=== PATIENT | male | born 1965 | race Caucasian/White ===

== ENCOUNTER → 2021-12-09 | Outpatient (CLI) | payer MEDICAID ==
[2021-12-09 15:33] LABS: HEMATOCRIT 38 % (40-54); HEMOGLOBIN 12.4 g/dL (13.3-17.7); MEAN CORPUSCULAR HEMOGLOBIN 28 pg (25-34); MEAN CORPUSCULAR HGB CONC 33 g/dL (32-36); MEAN CORPUSCULAR VOLUME 85 fL (80-99); MEAN PLATELET VOLUME 11.2 fL (9.0-12.2); PLATELET COUNT 324 10^3/uL (130-400); WHITE BLOOD COUNT 9.8 10^3/uL (4.3-11.0)
[2021-12-09 15:53] LABS: BILIRUBIN,TOTAL 0.2 MG/DL (0.1-1.0); BUN/CREATININE RATIO 12; CALCIUM 9.4 MG/DL (8.5-10.1); CARBON DIOXIDE 23 MMOL/L (21-32); CHLORIDE 107 MMOL/L (98-107); CREATININE SERUM 0.65 MG/DL (0.60-1.30); GFR ESTIMATED 110; GLUCOSE 113 MG/DL (70-105); POTASSIUM 4.2 MMOL/L (3.6-5.0); SODIUM 143 MMOL/L (135-145)
[2021-12-09 15:54] LABS: ALANINE AMINOTRANSFERASE 12 U/L (0-55); ALBUMIN 4.8 GM/DL (3.2-4.5); ALKALINE PHOSPHATASE 125 U/L (40-136); TOTAL PROTEIN 7.6 GM/DL (6.4-8.2)
== END ==
PROVIDERS: ATTEND Pediatrics
DX: R60.9 Edema, unspecified (principal)
CPT/HCPCS: 36415; 80053; 85027

== ENCOUNTER → 2021-12-10 | Outpatient (CLI) | payer MEDICAID ==
[2021-12-10 12:07] LABS: BILIRUBIN,URINE NEGATIVE (NEGATIVE); CLARITY,URINE TURBID; COLOR,URINE YELLOW; GLUCOSE, URINE (UA) NEGATIVE (NEGATIVE); KETONES,URINE NEGATIVE (NEGATIVE); LEUKOCYTE ESTERASE ,URINE 2+ (NEGATIVE); NITRITE,URINE POSITIVE (NEGATIVE); PH,URINE 5.5 (5-9); PROTEIN,URINE NEGATIVE (NEGATIVE)
[2021-12-10 12:13] LABS: BACTERIA,URINE LARGE /HPF; RBC,URINE TNTC /HPF
== END ==
PROVIDERS: ATTEND Pediatrics
DX: R30.0 Dysuria (principal)
CPT/HCPCS: 81000; 87088

== ENCOUNTER → 2021-12-17 | Outpatient (CLI) | payer MEDICAID | PROVIDERS: ATTEND Pediatrics | DX: G82.50 Quadriplegia, unspecified (principal) | CPT/HCPCS: 36415; 84134 ==

== ENCOUNTER → 2021-12-18 | Outpatient (CLI) | payer MEDICAID | PROVIDERS: ATTEND Pediatrics | DX: G82.50 Quadriplegia, unspecified (principal); L89.109 Pressure ulcer of unspecified part of back, unspecified stage | CPT/HCPCS: 36415; 83036 ==

== ENCOUNTER 2022-01-26 08:56 | Emergency (ER) | payer OTHER, MEDICAID ==
[~2022-01-26] VITALS: Ht 170.1 cm; Wt 68.1 kg
--- NOTE | 2022-01-26 08:58 | ED Abdominal Pain ---
General Stated Complaint: ABD PAIN; FEVER History of Present Illness Date Seen by Provider: Jan 26, 2022 Time Seen by Provider: 08:58 Initial Comments 57-year-old male with PMH of quadriplegia/SZD/bipolar/schizophrenia/colostomy bag, is brought in by EMS from [facility] with complaints of fever for the past 2 days, and abdominal pain. Denies chest pain, shortness of breath, nausea and vomiting, headache, neck stiffness, neck pain, dysuria. Allergies and Home Medications Allergies Coded Allergies: No Known Drug Allergies (Unverified , 01/26/22) Patient Home Medication List Home Medication List Reviewed: Yes Review of Systems Review of Systems Constitutional: fever, malaise EENTM: No Symptoms Reported Respiratory: No Symptoms Reported Cardiovascular: No Symptoms Reported Gastrointestinal: Abdominal Pain Genitourinary: No Symptoms Reported Musculoskeletal: no symptoms reported Skin: no symptoms reported Psychiatric/Neurological: No Symptoms Reported Endocrine: No Symptoms Reported Hematologic/Lymphatic: No Symptoms Reported Physical Exam Vital Signs Vital Signs - First Documented 01/26/22 08:57 Temp 39.1 Pulse 107 Resp 20 B/P (MAP) 98/60 (73) Pulse Ox 95 O2 Delivery Room Air Capillary Refill : Height/Weight/BMI Height: '" Weight: lbs. oz. kg; BMI Method: General Appearance: no apparent distress HEENT: PERRL/EOMI Neck: non-tender, supple, normal inspection Respiratory: chest non-tender, lungs clear, normal breath sounds Cardiovascular: normal peripheral pulses, regular rate, rhythm Gastrointestinal: normal bowel sounds, soft, tenderness (Diffuse generalized abdominal tenderness), other (Colostomy present) Extremities: other (Quadriplegia) Back: no CVA tenderness Neurologic/Psychiatric: alert, oriented x 3, other (quadriplegia) Skin: normal color Focused Exam Lactate Level 01/26/22 09:28: Lactic Acid Level 1.37 Lactic Acid Level Laboratory Tests Test 01/26/22 09:28 Lactic Acid Level 1.37 MMOL/L (0.50-2.00) Progress/Results/Core Measures Results/Orders Lab Results Laboratory Tests Test 01/26/22 09:08 01/26/22 09:28 01/26/22 09:39 01/26/22 11:05 Range/Units White Blood Count 13.6 H 4.3-11.0 10^3/uL Red Blood Count 4.36 4.30-5.52 10^6/uL Hemoglobin 12.1 L 13.3-17.7 g/dL Hematocrit 38 L 40-54 % Mean Corpuscular Volume 87 80-99 fL Mean Corpuscular Hemoglobin 28 25-34 pg Mean Corpuscular Hemoglobin Concent 32 32-36 g/dL Red Cell Distribution Width 15.4 H 10.0-14.5 % Platelet Count 244 130-400 10^3/uL Mean Platelet Volume 10.0 9.0-12.2 fL Immature Granulocyte % (Auto) 1 % Neutrophils (%) (Auto) 84 H 42-75 % Lymphocytes (%) (Auto) 10 L 12-44 % Monocytes (%) (Auto) 5 0-12 % Eosinophils (%) (Auto) 0 0-10 % Basophils (%) (Auto) 0 0-10 % Neutrophils # (Auto) 11.4 H 1.8-7.8 10^3/uL Lymphocytes # (Auto) 1.4 1.0-4.0 10^3/uL Monocytes # (Auto) 0.7 0.0-1.0 10^3/uL Eosinophils # (Auto) 0.0 0.0-0.3 10^3/uL Basophils # (Auto) 0.0 0.0-0.1 10^3/uL Immature Granulocyte # (Auto) 0.1 0.0-0.1 10^3/uL D-Dimer 0.90 H 0.00-0.49 UG/ML Sodium Level 138 135-145 MMOL/L Potassium Level 3.9 3.6-5.0 MMOL/L Chloride Level 105 98-107 MMOL/L Carbon Dioxide Level 22 21-32 MMOL/L Anion Gap 11 5-14 MMOL/L Blood Urea Nitrogen 12 7-18 MG/DL Creatinine 0.85 0.60-1.30 MG/DL Estimat Glomerular Filtration Rate 101 BUN/Creatinine Ratio 14 Glucose Level 100 70-105 MG/DL Lactic Acid Level 1.37 0.50-2.00 MMOL/L Calcium Level 8.8 8.5-10.1 MG/DL Corrected Calcium 8.6 8.5-10.1 MG/DL Magnesium Level 1.7 1.6-2.4 MG/DL Total Bilirubin 0.4 0.1-1.0 MG/DL Aspartate Amino Transf (AST/SGOT) 14 5-34 U/L Alanine Aminotransferase (ALT/SGPT) 6 0-55 U/L Alkaline Phosphatase 123 40-136 U/L Total Protein 7.8 6.4-8.2 GM/DL Albumin 4.3 3.2-4.5 GM/DL Lipase 21 8-78 U/L Influenza Type A Antigen NEGATIVE NEGATIVE Influenza Type B Antigen NEGATIVE NEGATIVE SARS-CoV-2 RNA (RT-PCR) Not Detected Not Detecte Urine Color YELLOW Urine Clarity SLIGHTLY CLOUDY Urine pH 6.5 5-9 Urine Specific [place] 1.020 1.016-1.022 Urine Protein TRACE H NEGATIVE Urine Glucose (UA) NEGATIVE NEGATIVE Urine Ketones NEGATIVE NEGATIVE Urine Nitrite POSITIVE H NEGATIVE Urine Bilirubin NEGATIVE NEGATIVE Urine Urobilinogen 0.2 < = 1.0 MG/DL Urine Leukocyte Esterase 1+ H NEGATIVE Urine RBC (Auto) 1+ H NEGATIVE Urine RBC 5-10 H /HPF Urine WBC 50-100 H /HPF Urine Crystals NONE /LPF Urine Bacteria LARGE H /HPF Urine Casts NONE /LPF Urine Mucus NEGATIVE /LPF Urine Culture Indicated YES My Orders Orders - KYLE CHRISTIANSEN MD Cbc With Automated Diff (01/26/22 09:04) Comprehensive Metabolic Panel (01/26/22 09:04) Fibrin Degradation Products (01/26/22 09:04) Lactic Acid Analyzer (01/26/22 09:04) Lipase (01/26/22 09:04) Magnesium (01/26/22 09:04) Ua Culture If Indicated (01/26/22 09:04) Blood Culture (01/26/22 09:04) Influenza A & B Antigens (01/26/22 09:04) Covid 19 Inhouse Test (01/26/22 09:04) Chest 1 View Ap/Pa Only (01/26/22 09:07) Ed Iv/Invasive Line Start (01/26/22 09:07) Ns Iv 1000 Ml (Sodium Chloride 0.9%) (01/26/22 09:15) Iohexol Injection (Omnipaque 350 Mg/Ml 1 (01/26/22 10:30) Received Contrast (Hold Metformin- Contr (01/26/22 10:30) Sodium Chloride Flush (Catheter Flush Sy (01/26/22 10:30) Ns (Ivpb) (Sodium Chloride 0.9% Ivpb Bag (01/26/22 10:30) Ct Audrey Chest/Noang Abd-Pelv W (01/26/22 09:07) Urine Culture (01/26/22 11:05) Ceftriaxone 1 Gm Pre-Mix (Rocephin 1 Gm (01/26/22 11:25) Ceftriaxone (Rocephin) (01/26/22 11:30) Lidocaine 1% Inj 20 Ml (Xylocaine 1% Inj (01/26/22 11:30) Lidocaine 1% Inj 50 Ml (Xylocaine 1% Inj (01/26/22 11:34) Medications Given in ED Current Medications Medications Dose Ordered Sig/Carmen Route Start Time Stop Time Status Last Admin Dose Admin Ceftriaxone Sodium 2,000 mg ONCE ONCE IM 01/26/22 11:30 01/26/22 11:31 DC 01/26/22 11:37 2,000 MG Iohexol 100 ml ONCE ONCE IV 01/26/22 10:30 01/26/22 10:31 DC 01/26/22 10:53 100 ML Lidocaine HCl 4.2 ml ONCE ONCE INJ 01/26/22 11:30 01/26/22 11:31 DC 01/26/22 11:37 4.2 ML Sodium Chloride 10 ml NEEDED PRN IV 01/26/22 10:30 01/26/22 10:53 10 ML Sodium Chloride 100 ml ONCE ONCE IV 01/26/22 10:30 01/26/22 10:31 DC 01/26/22 10:53 100 ML Vital Signs/I&O 01/26/22 08:57 Temp 39.1 Pulse 107 Resp 20 B/P (MAP) 98/60 (73) Pulse Ox 95 O2 Delivery Room Air Progress Progress Note : Progress Note 1. ACUTE CYSTITIS WITH HEMATURIA WITH GENERALIZED WEAKNESS: -CT ABD/ PELVIS: see report - CXR: see report - Labs: WBC is 13.6 with a left shift, normal electrolytes and lactic acid - Blood culture -Lactic acid normal - Rapid flue test negative - COVID test ordered - UA positive for leukocyte esterase, nitrites, bacteria, WBC, and RBCs -Patient has indwelling Panda catheter, last changed date unknown - NS IVF bolus -Ceftriaxone 2 g IV 2. 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 Lozada, at [facility], and was recommended to transfer where there is a vascular surgeon available to take care of IVC filters. -Plan is to transfer to [facility] in [place] for vascular surgery consult and higher level of care. Diagnostic Imaging Diagonstic Imaging: Xray, CT Plain Films/CT/US/NM/MRI: chest, abdomen Comments [facility] [place], [place] NAME: INDIGO GUZMAN [facility] REC#: [id number] PT STATUS: REG ER : 1965 PHYSICIAN: KYLE CHRISTIANSEN MD ADMIT DATE: 01/26/22/ER FS Draft Date of Exam:01/26/22 CHEST 1 VIEW AP/PA ONLY EXAMINATION: Chest 1 view HISTORY: Abdominal pain and fever COMPARISON: 06/13/2021 FINDINGS: A 1.9 cm nodular opacity projects over the right 8th rib. No edema or pneumonia. No pleural effusion or pneumothorax. Heart size is normal. IMPRESSION: 1. Nodular opacity projecting over the right 8th rib. Chest CT without contrast recommended. Dictated on workstation # [id number] Dict: 01/26/22 0951 Trans: 01/26/22 0955 [facility] [id number] Interpreted by: RENATA DAUGHERTY MD Electronically signed by: Departure Communication (Admissions) Time/Spoke to Consulting Phy: 14:[address] Lozada, who recommended transfer to a facility where there is a vascular surgeon Impression Primary Impression: IVC thrombosis Additional Impressions: Elevated d-dimer Generalized weakness Acute cystitis with hematuria Disposition: S[facility]-TRM HOSP Condition: Stable Transfer Transfer Reason: Exceeds level of care Time Spoke to Accepting Phy: 14:19 Transfer Progress Notes Discussed with Dr Navarro, as well as vascular surgeon Transfer Facility: [facility] Method of Transfer: EMS Departure-Patient Inst. Referrals: RENATA THURMAN MD (PCP) Primary Care Physician KYLE CHRISTIANSEN MD Jan 26, 2022 08:58
[2022-01-26] MEDS ORDERED: NS IV 1000 ML 1,000 ML IV SCH ×2 (09:15→17:15)
[2022-01-26 09:43] LABS: BASOPHILS % (AUTO) 0 % (0-10); EOSINOPHILS % (AUTO) 0 % (0-10); HEMATOCRIT 38 % (40-54); HEMOGLOBIN 12.1 g/dL (13.3-17.7); LYMPHOCYTES # (AUTO) 1.4 10^3/uL (1.0-4.0); LYMPHOCYTES % (AUTO) 10 % (12-44); MEAN CORPUSCULAR HEMOGLOBIN 28 pg (25-34); MEAN CORPUSCULAR HGB CONC 32 g/dL (32-36); MEAN CORPUSCULAR VOLUME 87 fL (80-99); MONOCYTES # (AUTO) 0.7 10^3/uL (0.0-1.0); MONOCYTES % (AUTO) 5 % (0-12); NEUTROPHILS # (AUTO) 11.4 10^3/uL (1.8-7.8); NEUTROPHILS % (AUTO) 84 % (42-75); PLATELET COUNT 244 10^3/uL (130-400); WHITE BLOOD COUNT 13.6 10^3/uL (4.3-11.0)
--- NOTE | 2022-01-26 09:56 | Diagnostic Imaging Report ---
EXAMINATION: Chest 1 view HISTORY: Abdominal pain and fever COMPARISON: 06/13/2021 FINDINGS: A 1.9 cm nodular opacity projects over the right 8th rib. No edema or pneumonia. No pleural effusion or pneumothorax. Heart size is normal. IMPRESSION: 1. Nodular opacity projecting over the right 8th rib. Chest CT without contrast recommended. Dictated by: Dictated on workstation # [id number]
[2022-01-26 10:04] LABS: ALBUMIN 4.3 GM/DL (3.2-4.5); BILIRUBIN,TOTAL 0.4 MG/DL (0.1-1.0); CALCIUM 8.8 MG/DL (8.5-10.1); CREATININE SERUM 0.85 MG/DL (0.60-1.30); MAGNESIUM 1.7 MG/DL (1.6-2.4); POTASSIUM 3.9 MMOL/L (3.6-5.0); TOTAL PROTEIN 7.8 GM/DL (6.4-8.2)
[2022-01-26] MEDS ORDERED: HOLD METFORMIN - RECEIVED CONTRAST 20 ML VIAL IV SCH (10:30)
[2022-01-26] MEDS ORDERED: IOHEXOL 350 MG/ML 100 ML (OMNIPAQUE 350) VIAL IV ONE (10:30)
[2022-01-26] MEDS ORDERED: CATHETER FLUSH 10 ML SYR IV PRN (10:30)
[2022-01-26] MEDS ORDERED: NS 100 ML (IVPB) BAG IV ONE (10:30)
[2022-01-26 11:15] LABS: BILIRUBIN,URINE NEGATIVE (NEGATIVE); COLOR,URINE YELLOW; GLUCOSE, URINE (UA) NEGATIVE (NEGATIVE); KETONES,URINE NEGATIVE (NEGATIVE); LEUKOCYTE ESTERASE ,URINE 1+ (NEGATIVE); NITRITE,URINE POSITIVE (NEGATIVE); PH,URINE 6.5 (5-9); PROTEIN,URINE TRACE (NEGATIVE)
[2022-01-26 11:20] LABS: BACTERIA,URINE LARGE /HPF; CLARITY,URINE SLIGHTLY CLOUDY; WBC,URINE 50-100 /HPF
--- NOTE | 2022-01-26 11:22 | Diagnostic Imaging Report ---
EXAMINATION: CT angiography chest with and without, CT abdomen and pelvis with and without. TECHNIQUE: Noncontrast enhanced helical images were obtained through the chest, abdomen and pelvis. Contrast enhanced thin section helical images were obtained through the chest, abdomen and pelvis with intravenous contrast timed for the optimal opacification of the arterial structures per departmental CTA protocol. Post-processing, retro reconstructions and interpretation of angiographic images of the vessels was performed. 3D MIP reconstructions were performed and reviewed. All CT scans use one or more of the following dose optimizing techniques: automated exposure control, MA and/or KvP adjustment based on patient size and exam type or iterative reconstruction. HISTORY: Elevated D-dimer, abdominal pain COMPARISON: 05/13/2021 FINDINGS: There is respiratory motion in the lungs. No pulmonary embolism. There is no edema or pneumonia. No pleural effusion. No pneumothorax. No suspicious nodules. There is mild basilar atelectasis. There is no axillary or supraclavicular lymphadenopathy. There is no mediastinal lymphadenopathy. Heart size is normal. There are mild coronary artery calcifications. No pericardial effusion. Aorta is normal in caliber. The liver is normal without focal lesion. There is no biliary ductal dilation. Gallbladder is normal. Pancreas is normal. Spleen is normal. Adrenal glands are normal. There are a few tiny stones in the kidneys. No suspicious renal lesions. There is no hydronephrosis. Bladder is decompressed by Panda catheter but is thick-walled with surrounding stranding. There are either stones or excreted contrast in the bladder. Bowel is normal in caliber without obstruction or inflammation. There has been a colon resection with colostomy in the left lower quadrant. Inferior vena cava filter is present. There is a filling defect in the inferior vena cava measuring 1.8 x 1.2 cm immediately cranial to the filter. No free fluid or air. No abdominal or pelvic lymphadenopathy. Aorta is normal in caliber without aneurysm. There are no suspicious osseus lesions. There is a chronic appearing T12 compression fracture that is mild. IMPRESSION: 1. No pulmonary embolism. 2. Decompressed bladder with Panda catheter but with wall thickening and surrounding stranding in either stones or excreted contrast. Findings concerning for cystitis. 3. Inferior vena cava filter. There is a small filling defect above the filter concerning for a thrombus. IVC mass is considered less likely but followup MRI abdomen with and without contrast is recommended for confirmation Dictated by: Dictated on workstation # [id number]
[2022-01-26] MEDS ORDERED: cefTRIAXone 1 GM PRE-MIX 50 ML IV STA (11:25)
[2022-01-26] MEDS ORDERED: cefTRIAXone 2,000 MG VIAL IM ONE (11:30)
[2022-01-26] MEDS ORDERED: LIDOCAINE 1% INJ 20 ML VIAL INJ ONE (11:30)
[2022-01-26] MEDS ORDERED: LIDOCAINE 1% INJ 50 ML (XYLOCAINE) VIAL ONE (11:34)
[2022-01-26] MEDS ORDERED: ACETAMINOPHEN 325 MG TABLET PO ONE (17:30)
[2022-01-26] MEDS ORDERED: NS IV 1000 ML 1,000 ML IV STA (19:04)
[2022-01-26 19:17] VITALS: BP 102/63
== END 2022-01-26 19:17 | disposition short-term general hospital (02) ==
LOC: EDUNIT# 08:56 → ER FS 08:57
DX: I82.220 Acute embolism and thrombosis of inferior vena cava (principal); N30.01 Acute cystitis with hematuria; R53.1 Weakness; R79.1 Abnormal coagulation profile; Z20.822 Contact with and (suspected) exposure to COVID-19
CPT/HCPCS: 36415; 71045; 71275; 74177; 80053; 81000; 83605; 83690; 83735; 85025; 85379; 87040; 87077; 87088; 87186; 87636; 87804; Q9967

== ENCOUNTER 2022-03-02 13:24 | Emergency (ER) | payer OTHER, MEDICAID ==
[~2022-03-02] VITALS: Ht 175.3 cm; Wt 72.6 kg
[2022-03-02 13:36] LABS: BASOPHILS % (AUTO) 0 % (0-10); EOSINOPHILS # (AUTO) 0.2 10^3/uL (0.0-0.3); EOSINOPHILS % (AUTO) 3 % (0-10); HEMATOCRIT 33 % (40-54); HEMOGLOBIN 10.8 g/dL (13.3-17.7); LYMPHOCYTES # (AUTO) 2.2 10^3/uL (1.0-4.0); LYMPHOCYTES % (AUTO) 26 % (12-44); MEAN CORPUSCULAR HEMOGLOBIN 28 pg (25-34); MEAN CORPUSCULAR HGB CONC 32 g/dL (32-36); MEAN CORPUSCULAR VOLUME 86 fL (80-99); MEAN PLATELET VOLUME 9.2 fL (9.0-12.2); MONOCYTES # (AUTO) 0.5 10^3/uL (0.0-1.0); MONOCYTES % (AUTO) 5 % (0-12); NEUTROPHILS # (AUTO) 5.8 10^3/uL (1.8-7.8); NEUTROPHILS % (AUTO) 66 % (42-75); PLATELET COUNT 282 10^3/uL (130-400); WHITE BLOOD COUNT 8.7 10^3/uL (4.3-11.0)
[2022-03-02 13:56] LABS: ALANINE AMINOTRANSFERASE 11 U/L (0-55); ALKALINE PHOSPHATASE 124 U/L (40-136); BILIRUBIN,TOTAL < 0.2 MG/DL (0.1-1.0); BUN/CREATININE RATIO 17; CARBON DIOXIDE 23 MMOL/L (21-32); CHLORIDE 109 MMOL/L (98-107); CREATININE SERUM 0.65 MG/DL (0.60-1.30); GFR ESTIMATED 109; GLUCOSE 105 MG/DL (70-105); POTASSIUM 3.8 MMOL/L (3.6-5.0); SODIUM 142 MMOL/L (135-145); TOTAL PROTEIN 7.1 GM/DL (6.4-8.2)
[2022-03-02 14:00] LABS: BILIRUBIN,URINE NEGATIVE (NEGATIVE); COLOR,URINE YELLOW; GLUCOSE, URINE (UA) NEGATIVE (NEGATIVE); KETONES,URINE NEGATIVE (NEGATIVE); LEUKOCYTE ESTERASE ,URINE 3+ (NEGATIVE); NITRITE,URINE POSITIVE (NEGATIVE); PROTEIN,URINE TRACE (NEGATIVE)
[2022-03-02] MEDS ORDERED: DIATRIZOATE MEGLUM/SODIUM 37% 120 ML (GASTROGRAFIN) PO ONE (14:00)
[2022-03-02 14:02] LABS: BACTERIA,URINE LARGE /HPF; CLARITY,URINE SLIGHTLY CLOUDY; WBC,URINE 25-50 /HPF
--- NOTE | 2022-03-02 14:51 | Diagnostic Imaging Report ---
PROCEDURE: CT abdomen and pelvis without contrast. TECHNIQUE: Multiple contiguous axial images were obtained through the abdomen and pelvis without the use of intravenous contrast. Auto Exposure Controls were utilized during the CT exam to meet ALARA standards for radiation dose reduction. INDICATION: Generalized abdominal pain for three days. Nausea and vomiting. COMPARISON: 01/26/2022. FINDINGS: There is dependent atelectasis in the lung bases. The heart is normal in size. The liver demonstrates no focal lesion. The spleen appears normal. The pancreas is normal. The adrenal glands appear normal. The kidneys demonstrate multiple nonobstructing calculi, the largest on the right measuring up to 5 mm. There is no hydronephrosis. There is motion artifact resulting in suboptimal evaluation. There is contrast in the stomach with significant ingested material. Contrast extends into the small bowel. The small bowel is not distended. The appendix appears normal. There is moderate stool in the proximal colon. Left colostomy is noted. The remainder of the colon is unremarkable. The urinary bladder wall is thickened. A Panda catheter is in place. There are numerous stones in the bladder. There is surrounding edema. An IVC filter is noted. No acute osseous abnormality is seen. There is a chronic appearing compression deformity of T12. IMPRESSION: 1. Thickening of the urinary bladder wall with surrounding edema and numerous stones. A Panda catheter is present. Please correlate with urinalysis to exclude infection. 2. Bilateral nephrolithiasis. No obstructing calculi or hydronephrosis. 3. Moderate stool in the proximal colon up to the colostomy. No evidence of bowel obstruction. Dictated by: Dictated on workstation # [id number]
[2022-03-02] MEDS ORDERED: cefTRIAXone 1 GM PRE-MIX 50 ML IV SCH (15:15)
--- NOTE | 2022-03-02 15:15 | ED Abdominal Pain ---
General Chief Complaint: Abdominal/GI Problems Stated Complaint: ABD PAIN,NAUSEA Nursing Triage Note: Patient reports abdominal pain for 3 days, nausea today. Source of Information: Patient Exam Limitations: No Limitations History of Present Illness Date Seen by Provider: Mar 02, 2022 Time Seen by Provider: 13:30 Initial Comments Patient is a 49-year-old male with history of quadriplegia with colostomy who indwelling Panda catheter who presents with pain around colostomy site for the past 2 days with decreased output. Patient is still taking soft brown stool wit h minimal flatus. Abdominal pain is described as dull. He has not had nausea or vomiting. No fevers chills. Patient had colostomy placed at [facility] and April 2021. No other symptoms or complaints. Timing/Duration: 4-6 Hours Severity/Quality: Moderate Location: Other Radiation: Other Activities at Onset: Other Associated Symptoms: Other Allergies and Home Medications Allergies Coded Allergies: carrot (Verified Allergy, Unknown, 03/02/22) potato (Verified Allergy, Unknown, 03/02/22) Uncoded Allergies: green beans (Allergy, Unknown, 03/02/22) Patient Home Medication List Home Medication List Reviewed: Yes Review of Systems Review of Systems Constitutional: see HPI EENTM: See HPI Respiratory: See HPI Cardiovascular: See HPI Gastrointestinal: See HPI Genitourinary: See HPI Musculoskeletal: see HPI Skin: see HPI Psychiatric/Neurological: See HPI Endocrine: See HPI Hematologic/Lymphatic: See HPI All Other Systems Reviewed Negative Unless Noted: Yes Past Tschnkt-Dqbqow-Ccvtzr Hx Patient Social History Tobacco Use?: No Smoking Status: Former Smoker Substance use?: No Alcohol Use?: No Pt feels they are or have been: No Immunizations Up To Date First/Initial COVID19 Vaccinat: unknown Past Medical History Surgery/Hospitalization HX: bipolar, epilepsy, quadrilplegia Physical Exam Vital Signs Vital Signs - First Documented 03/02/22 13:32 Temp 36.7 Pulse 70 Resp 18 B/P (MAP) 113/71 (85) Pulse Ox 96 O2 Delivery Room Air Capillary Refill : Less Than 3 Seconds Height/Weight/BMI Height: '" Weight: lbs. oz. kg; 23.00 BMI Method: General Appearance: WD/WN, no apparent distress, other (Quadriplegic with contraction fractures of hips) HEENT: PERRL/EOMI, normal ENT inspection Respiratory: lungs clear Cardiovascular: regular rate, rhythm Gastrointestinal: soft, distended, other (Nondistended, no paraStoma hernia appreciated. I will see him in mucosa is pink with minimal swellinhg with minimal stool present in ostomy bag) Focused Exam Sepsis Stage: Ruled Out Progress/Results/Core Measures Results/Orders Lab Results Laboratory Tests Test 03/02/22 13:30 03/02/22 13:50 Range/Units White Blood Count 8.7 4.3-11.0 10^3/uL Red Blood Count 3.89 L 4.30-5.52 10^6/uL Hemoglobin 10.8 L 13.3-17.7 g/dL Hematocrit 33 L 40-54 % Mean Corpuscular Volume 86 80-99 fL Mean Corpuscular Hemoglobin 28 25-34 pg Mean Corpuscular Hemoglobin Concent 32 32-36 g/dL Red Cell Distribution Width 15.7 H 10.0-14.5 % Platelet Count 282 130-400 10^3/uL Mean Platelet Volume 9.2 9.0-12.2 fL Immature Granulocyte % (Auto) 0 % Neutrophils (%) (Auto) 66 42-75 % Lymphocytes (%) (Auto) 26 12-44 % Monocytes (%) (Auto) 5 0-12 % Eosinophils (%) (Auto) 3 0-10 % Basophils (%) (Auto) 0 0-10 % Neutrophils # (Auto) 5.8 1.8-7.8 10^3/uL Lymphocytes # (Auto) 2.2 1.0-4.0 10^3/uL Monocytes # (Auto) 0.5 0.0-1.0 10^3/uL Eosinophils # (Auto) 0.2 0.0-0.3 10^3/uL Basophils # (Auto) 0.0 0.0-0.1 10^3/uL Immature Granulocyte # (Auto) 0.0 0.0-0.1 10^3/uL Sodium Level 142 135-145 MMOL/L Potassium Level 3.8 3.6-5.0 MMOL/L Chloride Level 109 H 98-107 MMOL/L Carbon Dioxide Level 23 21-32 MMOL/L Anion Gap 10 5-14 MMOL/L Blood Urea Nitrogen 11 7-18 MG/DL Creatinine 0.65 0.60-1.30 MG/DL Estimat Glomerular Filtration Rate 109 BUN/Creatinine Ratio 17 Glucose Level 105 70-105 MG/DL Calcium Level 9.0 8.5-10.1 MG/DL Corrected Calcium 9.0 8.5-10.1 MG/DL Total Bilirubin < 0.2 0.1-1.0 MG/DL Aspartate Amino Transf (AST/SGOT) 17 5-34 U/L Alanine Aminotransferase (ALT/SGPT) 11 0-55 U/L Alkaline Phosphatase 124 40-136 U/L Total Protein 7.1 6.4-8.2 GM/DL Albumin 4.0 3.2-4.5 GM/DL Urine Color YELLOW Urine Clarity SLIGHTLY CLOUDY Urine pH 6.0 5-9 Urine Specific [place] 1.015 L 1.016-1.022 Urine Protein TRACE H NEGATIVE Urine Glucose (UA) NEGATIVE NEGATIVE Urine Ketones NEGATIVE NEGATIVE Urine Nitrite POSITIVE H NEGATIVE Urine Bilirubin NEGATIVE NEGATIVE Urine Urobilinogen 0.2 < = 1.0 MG/DL Urine Leukocyte Esterase 3+ H NEGATIVE Urine RBC (Auto) 1+ H NEGATIVE Urine RBC NONE /HPF Urine WBC 25-50 H /HPF Urine Crystals NONE /LPF Urine Bacteria LARGE H /HPF Urine Casts NONE /LPF Urine Mucus NEGATIVE /LPF Urine Culture Indicated YES My Orders Orders - FACUNDO BROUSSARD DO Cbc With Automated Diff (03/02/22 13:31) Comprehensive Metabolic Panel (03/02/22 13:31) Urinalysis (03/02/22 13:31) Ct Abdomen/Pelvis Wo (03/02/22 13:31) Diatrizoate Meglum/Sodium 37% (Gastrogra (03/02/22 14:00) Urine Culture (03/02/22 13:50) Ceftriaxone 1 Gm Pre-Mix (Rocephin 1 Gm (03/02/22 15:15) Medications Given in ED Current Medications Medications Dose Ordered Sig/Carmen Route Start Time Stop Time Status Last Admin Dose Admin Diatrizoate Meglum/ Diatrizoate Sod 30 ml ONCE ONCE PO 03/02/22 14:00 03/02/22 14:01 DC 03/02/22 13:45 30 ML Vital Signs/I&O 03/02/22 13:32 Temp 36.7 Pulse 70 Resp 18 B/P (MAP) 113/71 (85) Pulse Ox 96 O2 Delivery Room Air Blood Pressure Mean: 85 Departure Communication (Admissions) CT abdomen pelvis: Moderate school proximal to ostomy without evidence of bowel obstruction. Bladder wall thickening with numerous stools present. Labs and imaging reviewed. Physical exam nondiagnostic. IV antibiotics given for urinary tract infection. Will return to [facility] facility treat urinary tract infection with antibiotics and increased fiber to facilitate ostomy throughput. PCP follow-up. Return precautions reviewed. Impression Primary Impression: Abdominal wall pain Additional Impressions: Urinary tract infection Quadriplegia and quadriparesis Disposition: HOME, SELF-CARE Condition: Stable Departure-Patient Inst. Decision time for Depature: 15:20 Referrals: RENATA THURMAN MD (PCP/Family) Primary Care Physician Patient Instructions: Abdominal Pain, Adult ED, Urinary Tract Infection, Adult ED Add. Discharge Instructions: Dannie was evaluated in the emergency department for abdominal pain surrounding his ostomy site. Lab and CT we imaging were performed. There is a moderate amount of stool above the level of the ostomy without evidence of obstruction on CT imaging. Urinary tract infection was also found to be present. Please increase daily oral fluid and fiber intake and fill antibiotics and take as directed. Follow-up with his PCP or [facility] attending in the next 2 to 3 days for reevaluation. Dannie should return to the ED if he has any new or co ncerning symptoms All discharge instructions reviewed with patient and/or family. Patient voiced understanding. Scripts Amoxicillin/Potassium Clav (Augmentin Xr 1,000-62.5 Tab) 1,000 Mg-62.5 Mg Tab.er.12h 1 EACH PO BID, #10 TAB Prov: FACUNDO BROUSSARD DO 03/02/22 FACUNDO BROUSSARD DO Mar 02, 2022 15:15
[2022-03-02] MEDS ORDERED: AMOX-356 PO (15:23)
[2022-03-02 16:00] VITALS: BP 115/79
== END 2022-03-02 16:00 | disposition home or self-care (01) ==
LOC: EDUNIT# 13:24 → ER FS 13:26
DX: N39.0 Urinary tract infection, site not specified (principal); G82.50 Quadriplegia, unspecified; Z87.891 Personal history of nicotine dependence; Z93.3 Colostomy status; Z96.0 Presence of urogenital implants
CPT/HCPCS: 36415; 74176; 80053; 81000; 85025; 87088

== ENCOUNTER → 2022-03-02 | Outpatient (CLI) | payer OTHER, MEDICAID ==
[~2022-03-02] MED LIST: AMOX-356 PO
[2022-03-02 10:30] LABS: BASOPHILS % (AUTO) 1 % (0-10); EOSINOPHILS # (AUTO) 0.2 10^3/uL (0.0-0.3); EOSINOPHILS % (AUTO) 2 % (0-10); HEMATOCRIT 34 % (40-54); LYMPHOCYTES # (AUTO) 1.9 10^3/uL (1.0-4.0); LYMPHOCYTES % (AUTO) 23 % (12-44); MEAN CORPUSCULAR HEMOGLOBIN 27 pg (25-34); MEAN CORPUSCULAR HGB CONC 32 g/dL (32-36); MEAN CORPUSCULAR VOLUME 85 fL (80-99); MEAN PLATELET VOLUME 9.4 fL (9.0-12.2); MONOCYTES # (AUTO) 0.4 10^3/uL (0.0-1.0); MONOCYTES % (AUTO) 6 % (0-12); NEUTROPHILS # (AUTO) 5.5 10^3/uL (1.8-7.8); NEUTROPHILS % (AUTO) 68 % (42-75); PLATELET COUNT 278 10^3/uL (130-400)
== END ==
LOC: LAB 10:23
PROVIDERS: ATTEND Pediatrics
DX: F06.2 Psychotic disorder with delusions due to known physiological condition (principal); B95.7 Other staphylococcus as the cause of diseases classified elsewhere
CPT/HCPCS: 36415; 85025

== ENCOUNTER 2022-03-12 18:36 | Emergency (ER) | payer OTHER, MEDICAID ==
[~2022-03-12] VITALS: Ht 175.2 cm; Wt 77.2 kg
--- NOTE | 2022-03-12 18:44 | ED GI ---
General Stated Complaint: COLOSTOMY BAG ISSUES/PAIN History of Present Illness Date Seen by Provider: Mar 12, 2022 Time Seen by Provider: 18:44 Initial Comments 57-year-old male presents with pain around his colostomy bag area. Patient reports is currently been a dull pain throughout the day today. Patient had similar symptoms on 03/02/2022 and had a extensive work-up at that time including negative CT abdomen pelvis. Patient does not have any nausea no vomiting. He does have a normal stool out of his ostomy. No fevers no chills. Allergies and Home Medications Allergies Coded Allergies: carrot (Verified Allergy, Unknown, 03/02/22) potato (Verified Allergy, Unknown, 03/02/22) Uncoded Allergies: green beans (Allergy, Unknown, 03/02/22) Patient Home Medication List Home Medication List Reviewed: Yes Amoxicillin/Potassium Clav (Augmentin Xr 1,000-62.5 Tab) 1,000 Mg-62.5 Mg Tab.er.12h, 1 EACH PO BID Prescribed by: FACUNDO BROUSSARD on 03/02/22 1523 Review of Systems Review of Systems Constitutional: No chills, No fever Respiratory: No Symptoms Reported Cardiovascular: No Symptoms Reported Gastrointestinal: See HPI, Abdominal Pain; Denies Diarrhea, Denies Nausea, Denies Vomiting Genitourinary: No Symptoms Reported, Other (Patient with indwelling catheter) Musculoskeletal: no symptoms reported Skin: no symptoms reported Psychiatric/Neurological: No Symptoms Reported Endocrine: No Symptoms Reported Past Tmictbk-Qituyf-Oxkpsj Hx Immunizations Up To Date First/Initial COVID19 Vaccinat: unknown Past Medical History Surgery/Hospitalization HX: bipolar, epilepsy, quadrilplegia Physical Exam Vital Signs Capillary Refill : Height/Weight/BMI Height: '" Weight: lbs. oz. kg; 23.00 BMI Method: General Appearance: WD/WN, no apparent distress Respiratory: lungs clear, normal breath sounds Cardiovascular: normal peripheral pulses, regular rate, rhythm Gastrointestinal: soft, tenderness (Mild tenderness around ostomy) Extremities: other (No acute changes) Neurologic/Psychiatric: alert, normal mood/affect Progress/Results/Core Measures Results/Orders Lab Results Laboratory Tests Test 03/12/22 19:10 03/12/22 19:30 Range/Units Urine Color PALE YELLOW Urine Clarity SL CLOUDY Urine pH 6.5 5-9 Urine Specific [place] <=1.005 1.016-1.022 Urine Protein NEGATIVE NEGATIVE Urine Glucose (UA) NEGATIVE NEGATIVE Urine Ketones NEGATIVE NEGATIVE Urine Nitrite POSITIVE H NEGATIVE Urine Bilirubin NEGATIVE NEGATIVE Urine Urobilinogen 0.2 < = 1.0 MG/DL Urine Leukocyte Esterase 3+ H NEGATIVE Urine RBC (Auto) 2+ H NEGATIVE Urine RBC 2-5 H /HPF Urine WBC 25-50 H /HPF Urine Squamous Epithelial Cells NONE /HPF Urine Crystals NONE /LPF Urine Bacteria MODERATE H /HPF Urine Casts NONE /LPF Urine Mucus NEGATIVE /LPF Urine Yeast MANY /HPF Urine Culture Indicated YES White Blood Count 8.0 4.3-11.0 10^3/uL Red Blood Count 4.03 L 4.30-5.52 10^6/uL Hemoglobin 11.2 L 13.3-17.7 g/dL Hematocrit 35 L 40-54 % Mean Corpuscular Volume 86 80-99 fL Mean Corpuscular Hemoglobin 28 25-34 pg Mean Corpuscular Hemoglobin Concent 32 32-36 g/dL Red Cell Distribution Width 15.6 H 10.0-14.5 % Platelet Count 327 130-400 10^3/uL Mean Platelet Volume 9.2 9.0-12.2 fL Immature Granulocyte % (Auto) 0 % Neutrophils (%) (Auto) 50 42-75 % Lymphocytes (%) (Auto) 39 12-44 % Monocytes (%) (Auto) 8 0-12 % Eosinophils (%) (Auto) 3 0-10 % Basophils (%) (Auto) 1 0-10 % Neutrophils # (Auto) 4.0 1.8-7.8 10^3/uL Lymphocytes # (Auto) 3.1 1.0-4.0 10^3/uL Monocytes # (Auto) 0.6 0.0-1.0 10^3/uL Eosinophils # (Auto) 0.2 0.0-0.3 10^3/uL Basophils # (Auto) 0.0 0.0-0.1 10^3/uL Immature Granulocyte # (Auto) 0.0 0.0-0.1 10^3/uL My Orders Orders - TALBOT,MCKINLEY L DO Cbc With Automated Diff (03/12/22 18:48) Comprehensive Metabolic Panel (03/12/22 18:48) Ua Culture If Indicated (03/12/22 18:48) Abdomen (Kub) 1 View (03/12/22 18:48) Urine Culture (03/12/22 19:10) Sulfamethoxazole/Trimet Ds Tab (Bactrim (03/12/22 20:00) Progress Progress Note : Progress Note Patient's urine is still consistent with a urinary tract infection. I reviewed patient's culture from his previous UTI. He was found to be susceptible to Rocephin or Bactrim. Patient was discharged home on Augmentin and does not appear that his antibiotic was called and changed to 1 that he was susceptible to. Patient's x-ray shows no acute findings and patient's labs not show any acute findings. I gave him a Toradol shot here in the ER to help with the discomfort and we will start him on Bactrim DS twice daily for 5 days. He should follow-up with Dr. Foster in 5 days for recheck of his symptoms. Patient stable and discharged home Diagnostic Imaging Diagonstic Imaging: Xray Plain Films/CT/US/NM/MRI: abdomen Comments Date of Exam:03/12/22 ABDOMEN (KUB) 1 VIEW Indication: Pain around colostomy. Findings: Ostomy shadow projects just left of midline. There is an IVC filter present near or above the expected level of the renal veins, this is unchanged from the CT of 03/02/2022. The bowel gas pattern itself is unremarkable. No abnormal fecal loading. There is right renal calculi visualized. Impression: No bowel obstruction or abnormal fecal loading, right nephrolithiasis noted, IVC filter is in unchanged alignment, no acute finding apparent. Reviewed: Reviewed by Me, Reviewed/Discussed Departure Impression Primary Impression: Acute cystitis with hematuria Additional Impression: Abdominal cramping Disposition: 01 HOME, SELF-CARE Condition: Stable Departure-Patient Inst. Referrals: RENATA FOSTER MD (PCP/Family) Primary Care Physician Patient Instructions: Urinary Tract Infection, Adult (DC) Add. Discharge Instructions: Please follow-up with Dr. Foster in 5 days for recheck of your urine. Sooner if symptoms or not improving over the next day or so. Scripts Sulfamethoxazole/Trimethoprim (Bactrim Ds Tablet) 1 Each Tablet 1 EACH PO BID for 7 Days, #14 TAB Prov: MCKINLEY TALBOT DO 03/12/22 MCKINLEY TALBOT DO Mar 12, 2022 18:44
--- NOTE | 2022-03-12 19:12 | Diagnostic Imaging Report ---
Indication: Pain around colostomy. Findings: Ostomy shadow projects just left of midline. There is an IVC filter present near or above the expected level of the renal veins, this is unchanged from the CT of 03/02/2022. The bowel gas pattern itself is unremarkable. No abnormal fecal loading. There is right renal calculi visualized. Impression: No bowel obstruction or abnormal fecal loading, right nephrolithiasis noted, IVC filter is in unchanged alignment, no acute finding apparent. Dictated by: Dictated on workstation # [id number]
[2022-03-12 19:32] LABS: BASOPHILS % (AUTO) 1 % (0-10); EOSINOPHILS # (AUTO) 0.2 10^3/uL (0.0-0.3); EOSINOPHILS % (AUTO) 3 % (0-10); HEMATOCRIT 35 % (40-54); HEMOGLOBIN 11.2 g/dL (13.3-17.7); LYMPHOCYTES # (AUTO) 3.1 10^3/uL (1.0-4.0); LYMPHOCYTES % (AUTO) 39 % (12-44); MEAN CORPUSCULAR HEMOGLOBIN 28 pg (25-34); MEAN CORPUSCULAR HGB CONC 32 g/dL (32-36); MEAN CORPUSCULAR VOLUME 86 fL (80-99); MEAN PLATELET VOLUME 9.2 fL (9.0-12.2); MONOCYTES # (AUTO) 0.6 10^3/uL (0.0-1.0); MONOCYTES % (AUTO) 8 % (0-12); NEUTROPHILS % (AUTO) 50 % (42-75); PLATELET COUNT 327 10^3/uL (130-400)
[2022-03-12 19:33] LABS: BILIRUBIN,URINE NEGATIVE (NEGATIVE); CLARITY,URINE SL CLOUDY; GLUCOSE, URINE (UA) NEGATIVE (NEGATIVE); KETONES,URINE NEGATIVE (NEGATIVE); LEUKOCYTE ESTERASE ,URINE 3+ (NEGATIVE); NITRITE,URINE POSITIVE (NEGATIVE); PH,URINE 6.5 (5-9); PROTEIN,URINE NEGATIVE (NEGATIVE)
[2022-03-12 19:40] LABS: BACTERIA,URINE MODERATE /HPF; COLOR,URINE PALE YELLOW; WBC,URINE 25-50 /HPF
[2022-03-12 19:41] LABS: YEAST,URINE MANY /HPF
[2022-03-12] MEDS ORDERED: KETOROLAC 30 MG/ML VIAL IVP STA (19:50)
[2022-03-12 19:54] LABS: ALBUMIN 4.4 GM/DL (3.2-4.5); BILIRUBIN,TOTAL 0.2 MG/DL (0.1-1.0); CALCIUM 9.3 MG/DL (8.5-10.1); CREATININE SERUM 0.69 MG/DL (0.60-1.30); POTASSIUM 3.5 MMOL/L (3.6-5.0); TOTAL PROTEIN 7.5 GM/DL (6.4-8.2)
[2022-03-12] MEDS ORDERED: SULF1TAB38 PO (19:55)
[2022-03-12] MEDS ORDERED: TRIM/SULFAMETH 160/800 (SEPTRA DS) TAB PO ONE (20:00)
[2022-03-12 20:10] VITALS: BP 123/85
== END 2022-03-12 20:10 | disposition home or self-care (01) ==
LOC: EDUNIT# 18:36 → ER FS 18:37
DX: N30.00 Acute cystitis without hematuria (principal); Z93.3 Colostomy status
CPT/HCPCS: 36415; 74018; 80053; 81000; 85025; 87088

== ENCOUNTER 2022-03-14 17:01 | Emergency (ER) | payer OTHER, MEDICAID ==
[~2022-03-14] VITALS: Ht 175 cm; Wt 77.0 kg
[~2022-03-14 17:01] MED LIST changes: +SULF1TAB38 PO
--- NOTE | 2022-03-14 17:21 | ED GU-Male ---
General Chief Complaint: Abdominal/GI Problems Stated Complaint: ABD PAIN History of Present Illness Date Seen by Provider: Mar 14, 2022 Time Seen by Provider: 17:20 Initial Comments 57-year-old male with PMH of paraplegia/schizoaffective disorder/BPD/seizure disorder/recurrent UTIs/colostomy/kidney stones, is [facility] from his shelter with complaints of lower abdominal pain which has been ongoing for the past few weeks, and for which she has been to the ER in clinic multiple times with a known kidney stone and UTI. Patient is here for the same thing. Patient was just seen here on March 12 and was given a prescription for Bactrim. Patient has only taken almost 2 days of Bactrim and is still having pain. Denies fever, dysuria, hematuria. Allergies and Home Medications Allergies Coded Allergies: carrot (Verified Allergy, Unknown, 03/02/22) potato (Verified Allergy, Unknown, 03/02/22) Uncoded Allergies: green beans (Allergy, Unknown, 03/02/22) Patient Home Medication List Home Medication List Reviewed: Yes Amoxicillin/Potassium Clav (Augmentin Xr 1,000-62.5 Tab) 1,000 Mg-62.5 Mg Tab.er.12h, 1 EACH PO BID Prescribed by: FACUNDO BROUSSARD on 03/02/22 152 Sulfamethoxazole/Trimethoprim (Bactrim Ds Tablet) 1 Each Tablet, 1 EACH PO BID Prescribed by: MCKINLEY TALBOT on 03/12/221954 Review of Systems Review of Systems Constitutional: no symptoms reported EENTM: no symptoms reported Respiratory: no symptoms reported Cardiovascular: no symptoms reported Gastrointestinal: no symptoms reported Genitourinary: other (suprapubic pain) Musculoskeletal: no symptoms reported Skin: no symptoms reported Psychiatric/Neurological: No Symptoms Reported Endocrine: No Symptoms Reported Hematologic/Lymphatic: No Symptoms Reported Past Qsehtdy-Puwqfe-Qvchyv Hx Immunizations Up To Date First/Initial COVID19 Vaccinat: unknown Second COVID19 Vaccination Kayden: unknown Third COVID19 Vaccination Date: unknown Past Medical History Surgery/Hospitalization HX: bipolar, epilepsy, quadrilplegia, neurogenic bladder with chronic indwelling cath, UTI's, colostomy Physical Exam Vital Signs Vital Signs - First Documented 03/14/22 17:20 Temp 36.7 Pulse 81 Resp 18 B/P (MAP) 106/64 (78) Pulse Ox 96 O2 Delivery Room Air Capillary Refill : Height, Weight, BMI Height: '" Weight: lbs. oz. kg; 25.00 BMI Method: General Appearance: WD/WN, no apparent distress HEENT: PERRL/EOMI Neck: full range of motion Cardiovascular: regular rate, rhythm Respiratory: lungs clear Gastrointestinal: normal bowel sounds, soft, no organomegaly, other (suprpubic tenderness present) Back: no CVA tenderness Extremities: other (paraplegia) Neurologic/Psychiatric: alert, normal mood/affect, oriented x 3 Skin: normal color Progress/Results/Core Measures Suspected Sepsis SIRS Temperature: Pulse: Respiratory Rate: Laboratory Tests 03/14/22 17:18: White Blood Count 7.4 Blood Pressure / Mean: Laboratory Tests 03/14/22 17:18: Creatinine 0.84, Platelet Count 332, Total Bilirubin 0.2 Results/Orders Lab Results Laboratory Tests Test 03/14/22 17:18 03/14/22 17:36 Range/Units White Blood Count 7.4 4.3-11.0 10^3/uL Red Blood Count 3.87 L 4.30-5.52 10^6/uL Hemoglobin 10.8 L 13.3-17.7 g/dL Hematocrit 33 L 40-54 % Mean Corpuscular Volume 86 80-99 fL Mean Corpuscular Hemoglobin 28 25-34 pg Mean Corpuscular Hemoglobin Concent 32 32-36 g/dL Red Cell Distribution Width 15.9 H 10.0-14.5 % Platelet Count 332 130-400 10^3/uL Mean Platelet Volume 9.5 9.0-12.2 fL Immature Granulocyte % (Auto) 0 % Neutrophils (%) (Auto) 60 42-75 % Lymphocytes (%) (Auto) 32 12-44 % Monocytes (%) (Auto) 5 0-12 % Eosinophils (%) (Auto) 3 0-10 % Basophils (%) (Auto) 1 0-10 % Neutrophils # (Auto) 4.4 1.8-7.8 10^3/uL Lymphocytes # (Auto) 2.3 1.0-4.0 10^3/uL Monocytes # (Auto) 0.4 0.0-1.0 10^3/uL Eosinophils # (Auto) 0.2 0.0-0.3 10^3/uL Basophils # (Auto) 0.1 0.0-0.1 10^3/uL Immature Granulocyte # (Auto) 0.0 0.0-0.1 10^3/uL Sodium Level 140 135-145 MMOL/L Potassium Level 3.9 3.6-5.0 MMOL/L Chloride Level 109 H 98-107 MMOL/L Carbon Dioxide Level 24 21-32 MMOL/L Anion Gap 7 5-14 MMOL/L Blood Urea Nitrogen 10 7-18 MG/DL Creatinine 0.84 0.60-1.30 MG/DL Estimat Glomerular Filtration Rate 101 BUN/Creatinine Ratio 12 Glucose Level 97 70-105 MG/DL Calcium Level 8.8 8.5-10.1 MG/DL Corrected Calcium 8.8 8.5-10.1 MG/DL Total Bilirubin 0.2 0.1-1.0 MG/DL Aspartate Amino Transf (AST/SGOT) 16 5-34 U/L Alanine Aminotransferase (ALT/SGPT) 9 0-55 U/L Alkaline Phosphatase 116 40-136 U/L Total Protein 7.2 6.4-8.2 GM/DL Albumin 4.0 3.2-4.5 GM/DL Urine Color YELLOW Urine Clarity CLEAR Urine pH 6.5 5-9 Urine Specific [place] 1.010 L 1.016-1.022 Urine Protein NEGATIVE NEGATIVE Urine Glucose (UA) NEGATIVE NEGATIVE Urine Ketones NEGATIVE NEGATIVE Urine Nitrite POSITIVE H NEGATIVE Urine Bilirubin NEGATIVE NEGATIVE Urine Urobilinogen 0.2 < = 1.0 MG/DL Urine Leukocyte Esterase 3+ H NEGATIVE Urine RBC (Auto) 2+ H NEGATIVE Urine RBC 5-10 H /HPF Urine WBC 25-50 H /HPF Urine Squamous Epithelial Cells NONE /HPF Urine Crystals NONE /LPF Urine Bacteria MODERATE H /HPF Urine Casts NONE /LPF Urine Mucus NEGATIVE /LPF Urine Yeast MODERATE H /HPF Urine Culture Indicated YES My Orders Orders - KYLE CHRISTIANSEN MD Cbc With Automated Diff (03/14/22 17:26) Comprehensive Metabolic Panel (03/14/22 17:26) Ua Culture If Indicated (03/14/22 17:26) Urine Culture (03/14/22 17:36) Cefepime Injection (Maxipime Injection) (03/14/22 18:30) Medications Given in ED Current Medications Medications Dose Ordered Sig/Carmen Route Start Time Stop Time Status Last Admin Dose Admin Cefepime HCl 1000 mg/Sodium Chloride 50 ml @ 100 mls/hr ONCE ONCE IV 03/14/22 18:30 03/14/22 18:59 03/14/22 18:33 100 MLS/HR Vital Signs/I&O 03/14/22 17:20 Temp 36.7 Pulse 81 Resp 18 B/P (MAP) 106/64 (78) Pulse Ox 96 O2 Delivery Room Air Capillary Refill : Progress Note : Progress Note 1. CHRONIC UTI & CHRONIC NEPHROLITHIASIS: - Repeat UA today shows positive leukocyte esterase, nitrites, RBCs, WBCs and bacteria. -Patient is on day 2 of Bactrim. Continue and complete course of Bactrim - WBC is normal, CMP unremarkable - CT ABD done a few days ago shows kidney stones - One time doseof Cefepime in ER STAT -Patient has been drinking adequate amounts of water -Culture and sensitivity report is not back yet. -Patient is to follow-up with urology and with PCP, but especially with urology clinic. Call to make appointment. -The patient was seen in the ED, and treated appropriately to presentation at a specific point in time. Patient is informed that there is a possibility that disease and illness can evolve and change in acuity rapidly or slowly after patient is discharged from the ER. Precautionary advice given to the patient for immediate return to ER if symptoms worsen or do not resolve, and to seek e mergency care sooner rather than later. Pt also advised on the importance of PCP follow up and compliance with management and follow up plan with PCP and/or specialist, as this is part of the management plan. Pt verbally expressed understanding. Departure Impression Primary Impression: Chronic UTI Additional Impression: Nephrolithiasis Disposition: HOME, SELF-CARE Condition: Stable Departure-Patient Inst. Referrals: RENATA THURMAN MD (PCP/Family) Primary Care Physician FADY CORONA MD Patient Instructions: Urinary Tract Infection, Adult ED, Kidney Stones (DC) Add. Discharge Instructions: -Culture and sensitivity report is not back yet. -Patient is to follow-up with urology and with PCP, but especially with urology clinic. Call to make appointment. Urology office: [phone]. Urologist: Dr. Corona All discharge instructions reviewed with patient and/or family. Voiced understanding. KYLE CHRISTIANSEN MD Mar 14, 2022 17:21
[2022-03-14 17:36] LABS: BASOPHILS # (AUTO) 0.1 10^3/uL (0.0-0.1); BASOPHILS % (AUTO) 1 % (0-10); EOSINOPHILS # (AUTO) 0.2 10^3/uL (0.0-0.3); EOSINOPHILS % (AUTO) 3 % (0-10); HEMATOCRIT 33 % (40-54); HEMOGLOBIN 10.8 g/dL (13.3-17.7); LYMPHOCYTES # (AUTO) 2.3 10^3/uL (1.0-4.0); LYMPHOCYTES % (AUTO) 32 % (12-44); MEAN CORPUSCULAR HEMOGLOBIN 28 pg (25-34); MEAN CORPUSCULAR HGB CONC 32 g/dL (32-36); MEAN CORPUSCULAR VOLUME 86 fL (80-99); MEAN PLATELET VOLUME 9.5 fL (9.0-12.2); MONOCYTES # (AUTO) 0.4 10^3/uL (0.0-1.0); MONOCYTES % (AUTO) 5 % (0-12); NEUTROPHILS # (AUTO) 4.4 10^3/uL (1.8-7.8); NEUTROPHILS % (AUTO) 60 % (42-75); PLATELET COUNT 332 10^3/uL (130-400); WHITE BLOOD COUNT 7.4 10^3/uL (4.3-11.0)
[2022-03-14 17:46] LABS: BILIRUBIN,TOTAL 0.2 MG/DL (0.1-1.0); CALCIUM 8.8 MG/DL (8.5-10.1); CREATININE SERUM 0.84 MG/DL (0.60-1.30); POTASSIUM 3.9 MMOL/L (3.6-5.0); TOTAL PROTEIN 7.2 GM/DL (6.4-8.2)
[2022-03-14 17:52] LABS: BILIRUBIN,URINE NEGATIVE (NEGATIVE); CLARITY,URINE CLEAR; COLOR,URINE YELLOW; GLUCOSE, URINE (UA) NEGATIVE (NEGATIVE); KETONES,URINE NEGATIVE (NEGATIVE); LEUKOCYTE ESTERASE ,URINE 3+ (NEGATIVE); NITRITE,URINE POSITIVE (NEGATIVE); PH,URINE 6.5 (5-9); PROTEIN,URINE NEGATIVE (NEGATIVE)
[2022-03-14 17:53] LABS: BACTERIA,URINE MODERATE /HPF; WBC,URINE 25-50 /HPF; YEAST,URINE MODERATE /HPF
[2022-03-14] MEDS ORDERED: CEFEPIME INJECTION 1,000 MG in NS (IVPB) 50 ML IV ONE (18:30)
[2022-03-14 19:58] VITALS: BP 106/64
== END 2022-03-14 19:58 | disposition home or self-care (01) ==
LOC: EDUNIT# 17:01 → ER FS 17:02
DX: N39.0 Urinary tract infection, site not specified (principal); N20.0 Calculus of kidney; Z96.0 Presence of urogenital implants
CPT/HCPCS: 36415; 80053; 81000; 85025; 87077; 87088; 87186